=== PATIENT | female | born 1965 | race Caucasian/White ===

== ENCOUNTER 2017-10-07 11:26 | Observation (INO) | payer OTHER ==
[2017-10-07 13:10] LABS: Basophils % (A) 0 %; Eosinophils # (A) 0.2 k/uL (0-0.7); Eosinophils % (A) 2 %; HCT 45.7 % (34.0-46.0); HGB 14.9 gm/dL (11.4-16.0); Lymphocytes # (A) 2.6 k/uL (1.0-4.8); Lymphocytes % (A) 26 %; MCH 29.8 pg (25.0-35.0); MCHC 32.7 g/dL (31.0-37.0); MCV 91.1 fL (80.0-100.0); Monocytes # (A) 0.4 k/uL (0-1.0); Monocytes % (A) 4 %; Neutrophils # (A) 6.5 k/uL (1.3-7.7); Neutrophils % (A) 66 %; Platelet Count 223 k/uL (150-450); RBC 5.02 m/uL (3.80-5.40); RDW 13.1 % (11.5-15.5); WBC 9.8 k/uL (3.8-10.6)
[2017-10-07 13:17] LABS: Prothrombin Time 9.8 sec (9.0-12.0)
[2017-10-07 13:19] LABS: ALT 24 U/L (9-52); AST 27 U/L (14-36); Albumin 4.2 g/dL (3.5-5.0); Alkaline Phosphatase 73 U/L (38-126); Anion Gap 7 mmol/L; Blood Urea Nitrogen 9 mg/dL (7-17); Calcium 9.2 mg/dL (8.4-10.2); Carbon Dioxide 26 mmol/L (22-30); Chloride 107 mmol/L (98-107); Glucose 92 mg/dL (74-99); Lipase 128 U/L (23-300); Potassium 4.1 mmol/L (3.5-5.1); Sodium 140 mmol/L (137-145); Total Bilirubin 0.4 mg/dL (0.2-1.3); Total Protein 6.7 g/dL (6.3-8.2)
[2017-10-07] MEDS ORDERED: KETOROLAC 30 MG/ML 1 ML VIAL IVP STA (15:13)
[2017-10-07] MEDS ORDERED: diphenhydrAMINE 50 MG/ML 1 ML VIAL IVP STA (15:13)
[2017-10-07] MEDS ORDERED: METOCLOPRAMIDE 5 MG/ML 2 ML VIAL IVP STA (15:13)
[2017-10-07] MEDS ORDERED: DEXAMETHASONE SOD PHOSPHATE 10 MG/ML 1 ML VIAL IV STA (15:13)
[2017-10-07] MEDS ORDERED: SODIUM CHLORIDE 0.9% 1,000 ML IV ONE (15:13)
[2017-10-07] MEDS ORDERED: NALOXONE 0.4 MG/ML 1 ML VIAL IV PRN (15:14)
--- NOTE | 2017-10-07 15:23 | ED ---
General Adult HPI - General Chief complaint: Recheck/Abnormal Lab/Rx Stated complaint: Cyst on Brain Time Seen by Provider: 10/07/17 11:58 Source: patient Mode of arrival: ambulatory Limitations: no limitations - History of Present Illness Initial comments: Patient presents with a chief complaint of headache, left sided facial numbness , irritability over the last month. Patient was seen at an outside hospital, [facility], and was advised transfer for MRI. While there, patient had an extensive workup including a computed tomography scan of the head which identified a benign-appearing pineal cyst. CAT scan of the abdomen and pelvis was unremarkable although there was some concern for DVT. Patient did have Dopplers performed however radiologist interpretation was not sent with her. Images were uploaded however radiologist was unable to read the scan. On initial examination, patient overall appears well. She cannot identify an inciting incident to her symptoms. No aggravating or alleviating factors. Timing is constant. - Related Data Allergies Allergy/AdvReac Type Severity Reaction Status Date / Time ibuprofen Allergy Rash/Hives Verified 10/07/17 11:36 naproxen Allergy Rash/Hives Verified 10/07/17 11:36 Sulfa (Sulfonamide Allergy Rash/Hives Verified 10/07/17 11:36 Antibiotics) tramadol Allergy Rash/Hives Verified 10/07/17 11:36 Review of Systems ROS Statement: Those systems with pertinent positive or pertinent negative responses have been documented in the HPI. ROS Other: All systems not noted in ROS Statement are negative. Neurological: Reports: headache, paresthesias Past Medical History Past Medical History: COPD Additional Past Medical History / Comment(s): Pineal gland cyst, diverticulousis , hiatal hernia History of Any Multi-Drug Resistant Organisms: None Reported Past Surgical History: No Surgical Hx Reported Past Psychological History: No Psychological Hx Reported Smoking Status: Current every day smoker Past Alcohol Use History: None Reported Past Drug Use History: None Reported General Exam Limitations: no limitations General appearance: alert, in no apparent distress Head exam: Present: atraumatic, normocephalic Eye exam: Present: normal appearance, PERRL, EOMI. Absent: scleral icterus, conjunctival injection, nystagmus ENT exam: Present: normal exam, normal oropharynx, mucous membranes moist Neck exam: Present: normal inspection Respiratory exam: Present: normal lung sounds bilaterally. Absent: respiratory distress, wheezes Cardiovascular Exam: Present: regular rate, normal rhythm GI/Abdominal exam: Present: soft. Absent: distended, tenderness Rectal exam: Present: deferred External exam: Present: normal external exam Extremities exam: Present: normal inspection Back exam: Present: normal inspection, full ROM. Absent: CVA tenderness (R), CVA tenderness (L) Neurological exam: Present: alert, oriented X3, normal gait, motor sensory deficit, other (Patient reports paresthesias of the left side of the face. There is no motor deficit appreciated. Neurologic exam is otherwise unremarkable.) Psychiatric exam: Present: normal affect, normal mood Skin exam: Present: warm, dry, intact Course Vital Signs 10/07/17 10/07/17 11:31 14:22 Temperature 98.4 F 98.3 F Pulse Rate 86 78 Respiratory 18 18 Rate Blood Pressure 116/76 116/68 O2 Sat by Pulse 99 Oximetry Medical Decision Making - Medical Decision Making Patient presents with a chief complaint of left-sided facial numbness, and irritability over the last month. Patient sent from outside hospital. Records from outside hospital reviewed. Patient will be evaluated with a repeat lower showed a Doppler to rule out DVT. Lab evaluation in the emergency department is unremarkable. Urinalysis was negative from outside facility. Patient treated with a headache cocktail. Considered meningitis however patient not showing meningeal signs. Neurologic exam is nonfocal. I discussed the utility of a lumbar puncture with the patient however she declines at this time. This case was discussed with BUFFY Alberts with Dr. Meraz who accepts admission for further neurologic evaluation and MRI. Care plan discussed with the patient, she is agreeable at this time. On reevaluation, patient remains comfortable, keenly alert and awake. Given patient's presenting symptoms, we discussed TPA. Patient is certainly not a candidate for TPA at this time given the timeframe of her symptoms. Patient understands. EKG performed at the outside hospital yesterday shows normal sinus rhythm with a rate of 82 bpm. Intervals appear to be within normal limits. EKG is otherwise unremarkable. - Lab Data Result diagrams: 10/07/17 12:54 10/07/17 12:54 Lab Results 10/07/17 10/07/17 10/07/17 Range/Units 12:54 12:54 12:54 WBC 9.8 (3.8-10.6) k/uL RBC 5.02 (3.80-5.40) m/uL Hgb 14.9 (11.4-16.0) gm/dL Hct 45.7 (34.0-46.0) % MCV 91.1 (80.0-100.0) fL MCH 29.8 (25.0-35.0) pg MCHC 32.7 (31.0-37.0) g/dL RDW 13.1 (11.5-15.5) % Plt Count 223 (150-450) k/uL Neutrophils % 66 % Lymphocytes % 26 % Monocytes % 4 % Eosinophils % 2 % Basophils % 0 % Neutrophils # 6.5 (1.3-7.7) k/uL Lymphocytes # 2.6 (1.0-4.8) k/uL Monocytes # 0.4 (0-1.0) k/uL Eosinophils # 0.2 (0-0.7) k/uL Basophils # 0.0 (0-0.2) k/uL PT 9.8 (9.0-12.0) sec INR 1.0 (<1.2) Sodium 140 (137-145) mmol/L Potassium 4.1 (3.5-5.1) mmol/L Chloride 107 (98-107) mmol/L Carbon Dioxide 26 (22-30) mmol/L Anion Gap 7 mmol/L BUN 9 (7-17) mg/dL Creatinine 0.60 (0.52-1.04) mg/dL Est GFR (CKD-EPI)AfAm >90 (>60 ml/min/1.73 sqM) Est GFR (CKD-EPI)NonAf >90 (>60 ml/min/1.73 sqM) Glucose 92 (74-99) mg/dL Calcium 9.2 (8.4-10.2) mg/dL Total Bilirubin 0.4 (0.2-1.3) mg/dL AST 27 (14-36) U/L ALT 24 (9-52) U/L Alkaline Phosphatase 73 (38-126) U/L Total Protein 6.7 (6.3-8.2) g/dL Albumin 4.2 (3.5-5.0) g/dL Lipase 128 (23-300) U/L Disposition Clinical Impression: Left facial numbness, Irritability Disposition: ADMITTED IP TO THIS [facility] Condition: Good Referrals: Gabriella Spears MD [Primary Care Provider] - 1-2 days Decision to Admit Reason: Admit from EC - Out of Hospital Transfer - Req. Specs Out of Hospital Transfer - Requested Specifics: Other Non-Acute
[2017-10-07] MEDS: HYDROcodone/APAP 5-325MG 1 EACH TAB PO PRN ×2 (16:05→23:36)
[2017-10-07] MEDS ORDERED: DICYCLOMINE 10 MG CAP PO PRN (18:07)
[2017-10-07] MEDS ORDERED: GABAPENTIN 400 MG CAP PO PRN (18:07)
[2017-10-07] MEDS: KETOROLAC 30 MG/ML 1 ML VIAL IVP PRN (19:52)
--- NOTE | 2017-10-07 20:47 | P.CNNES ---
History of Present Illness Consult date: 10/07/17 Reason for Consult: Patient being admitted for left facial numbness and headache. History of Present Illness: This patient is a 51-year-old right-handed white female who apparently over the last 1 month has been having symptoms of left-sided facial numbness. She describes a sensation as a paresthesia in which her old left side of the face is been numb and tingling. It is been present for over one month. She describes it as if she had gone to the dentist and had anesthesia applied to the area of the face. She states that the symptoms have not improved whatsoever in the past 1 month. She went to see her primary care physician recently who advised her to have a computed tomography scan of the brain done. She was being scheduled for this CAT scan but developed difficulty with her balance and gait yesterday at home and ran into the wall and was showing signs of increasing symptoms and for this reason was brought into the emergency room at [facility] yesterday for evaluation. She underwent a computed tomography scan of the brain which identified a benign-appearing pineal cyst. She was recommended transferred to [facility] for neurological follow-up as well as an MRI of the brain. Patient denies any previous history of significant headaches. She has no previous history of closed head injury or head trauma. She has been perplexed with the sensory changes on the face and for this reason is now been admitted to hospital for further evaluation. Patient states that yesterday at home she lost her balance and was walking into the wall. She did have some degree of dizziness. She does experience muscle spasms but has not had a recent vitamin D level done. She states that about 30 years ago she did have major back surgery done at [facility] in which a cage in several levels had to require fusion. She is unable to have any further back surgery due to the severe complex history that she has had in the past. Patient denies any significant back pain or shooting pain into her legs. Her paresthesias and numbness has been compliant only to the left side of her face. The patient denies any recent dental work. She has no previous history of diplopia or clumsiness over the last 5-10 years. We have recommended a vitamin D level to be done for her for further evaluation. The patient is now been admitted and neurology has been consulted for further evaluation and recommendations. Review of Systems Constitutional: Denies chills, Denies fever Eyes: denies blurred vision, denies pain Ears, nose, mouth and throat: Denies headache, Denies sore throat Cardiovascular: Denies chest pain, Denies shortness of breath Respiratory: Denies cough Gastrointestinal: Denies abdominal pain, Denies diarrhea, Denies nausea, Denies vomiting Genitourinary: Denies dysuria, Denies hematuria Musculoskeletal: Denies myalgias Integumentary: Denies pruritus, Denies rash Neurological: Reports paresthesias, Reports tingling, Denies numbness, Denies weakness Psychiatric: Denies anxiety, Denies depression Endocrine: Denies fatigue, Denies weight change Past Medical History Past Medical History: COPD, Fibromyalgia, GERD/Reflux, Osteoarthritis (OA) Additional Past Medical History / Comment(s): newly found Pineal gland cyst, diverticulousis, hiatal hernia ,emphysema,"arrythmia- skips beats , recently given script for cholesterol med but has'nt filled it yet. shingles 2014 lt lower back,pt stated had flu/pne vaccine but publicity writer unable to verify dates at time of admit History of Any Multi-Drug Resistant Organisms: None Reported Past Surgical History: Back Surgery Additional Past Surgical History / Comment(s): back sx w/ caging lumbar area, rt carpal tunnel release, rt ulnar sx Past Anesthesia/Blood Transfusion Reactions: No Reported Reaction Past Psychological History: No Psychological Hx Reported Additional Psychological History / Comment(s): lives with boyfriend Smoking Status: Current every day smoker Past Alcohol Use History: None Reported Additional Past Alcohol Use History / Comment(s): started smoking at age 8, smokes 1/2 ppd Past Drug Use History: None Reported - Past Family History Father Family Medical History: Cancer Additional Family Medical History / Comment(s): smoker, from lung cancer Mother Family Medical History: Cancer Additional Family Medical History / Comment(s): breast cancr survivor Medications and Allergies Home Medications Medication Instructions Recorded Confirmed Type ALPRAZolam [Xanax] 0.5 mg PO TID PRN 10/07/17 10/07/17 History Atorvastatin [Lipitor] 20 mg PO HS 10/07/17 10/07/17 History Cyclobenzaprine [Flexeril] 10 mg PO TID PRN 10/07/17 10/07/17 History Dicyclomine [Bentyl] 10 mg PO TID PRN 10/07/17 10/07/17 History Fluticasone Nasal [place] [Flonase 2 spr EA NOSTRIL DAILY 10/07/17 10/07/17 History Nasal [place]] Gabapentin 1,600 mg PO HS 10/07/17 10/07/17 History Gabapentin 800 mg PO DAILY PRN 10/07/17 10/07/17 History Pantoprazole Sodium [Protonix] 40 mg PO DAILY 10/07/17 10/07/17 History Verapamil HCl [Verapamil ER] 180 mg PO DAILY 10/07/17 10/07/17 History traZODone HCL 50 - 100 mg PO HS PRN 10/07/17 10/07/17 History Allergies Allergy/AdvReac Type Severity Reaction Status Date / Time ibuprofen Allergy Rash/Hives Verified 10/07/17 15:35 naproxen Allergy Rash/Hives Verified 10/07/17 15:35 Sulfa (Sulfonamide Allergy Rash/Hives Verified 10/07/17 15:35 Antibiotics) tramadol Allergy Rash/Hives Verified 10/07/17 15:35 Physical Examination - Vital Signs Vital Signs: Vital Signs Temp Pulse Pulse Resp BP BP Pulse Ox 10/07/17 17:28 98.8 F 77 16 116/72 98 10/07/17 16:04 98.5 F 84 18 113/71 97 10/07/17 14:22 98.3 F 78 18 116/68 99 10/07/17 11:31 98.4 F 86 18 116/76 Intake and Output 10/07/17 10/07/17 10/07/17 06:59 14:59 22:59 Other: Voiding Method Toilet # Voids 1 Weight 75.75 kg - Constitutional General appearance: average body habitus, cooperative - EENT EENT: PERRL, mucous membranes moist - Respiratory Respiratory: lungs clear, normal breath sounds - Cardiovascular Cardiovascular: regular rate, normal S1, normal S2 Extremities: no peripheral edema bilaterally - Gastrointestinal Gastrointestinal: normoactive bowel sounds - Integumentary Integumentary: normal - Neurologic Speech examination: intact Sensorimotor examination: intact Detailed sensory examination: intact Reflex and gait examination: intact Reflexes: 1+: ankle, bicep, knee, tricep - Musculoskeletal Musculoskeletal: no pain - Psychiatric Psychiatric: mood/affect appropriate, cooperative Results - Laboratory Findings CBC and BMP: 10/07/17 12:54 10/07/17 12:54 Assessment and Plan (1) Left facial numbness Current Visit: Yes Status: Acute Code(s): R20.0 - ANESTHESIA OF SKIN SNOMED Code(s): 156249317 (2) Atypical facial pain Current Visit: Yes Status: Acute Code(s): G50.1 - ATYPICAL FACIAL PAIN SNOMED Code(s): 18009542 (3) Trigeminal neuralgia Current Visit: Yes Status: Acute Code(s): G50.0 - TRIGEMINAL NEURALGIA SNOMED Code(s): 39611801 (4) History of back surgery Current Visit: Yes Status: Acute Code(s): Z98.890 - OTHER SPECIFIED POSTPROCEDURAL STATES SNOMED Code(s): 272605573 Plan: This patient is a 51-year-old female being evaluated for one-month history of left-sided facial numbness and paresthesia. She has had no other significant finding other than the sense of pins and needle sensation on the left side of her face. This has been ongoing for over one month. She underwent a computed tomography scan of the brain at a outside hospital at the [facility]. CAT scan of the brain revealed evidence of a benign-appearing pineal cyst. Patient was transferred to [facility] for further evaluation. We have recommended patient undergo MRI of the brain for further assessment of the left-sided facial numbness. Her symptoms could be early signs of trigeminal neuralgia. We will await her MRI results to come back before giving any further recommendations. Her neurological examination otherwise is nonfocal. She does have mild hyperreflexia in the lower extremities at this is secondary to her known history of back surgery with instrumentation done many years ago at [facility]. We will continue close neurological follow-up with the patient during this admission. Time with Patient: Greater than 30
[2017-10-07] MEDS ORDERED: ATORVASTATIN 20 MG TAB PO SCH (21:00)
[2017-10-07] MEDS ORDERED: GABAPENTIN 400 MG CAP PO SCH (21:00)
[2017-10-08] MEDS: KETOROLAC 30 MG/ML 1 ML VIAL IVP PRN ×2 (03:47→10:04)
[2017-10-08] MEDS ORDERED: PANTOPRAZOLE 40 MG TABLET PO SCH (07:30)
[2017-10-08 07:37] LABS: Basophils % (A) 0 %; Eosinophils % (A) 0 %; HCT 43.6 % (34.0-46.0); HGB 13.9 gm/dL (11.4-16.0); Lymphocytes # (A) 1.2 k/uL (1.0-4.8); Lymphocytes % (A) 13 %; MCH 29.3 pg (25.0-35.0); MCHC 31.8 g/dL (31.0-37.0); MCV 92.1 fL (80.0-100.0); Mean Platelet Volume 6.9; Monocytes # (A) 0.1 k/uL (0-1.0); Monocytes % (A) 1 %; Neutrophils % (A) 85 %; Platelet Count 217 k/uL (150-450); RBC 4.73 m/uL (3.80-5.40); RDW 13.1 % (11.5-15.5); WBC 9.4 k/uL (3.8-10.6)
[2017-10-08] MEDS: HYDROcodone/APAP 5-325MG 1 EACH TAB PO PRN (07:49)
[2017-10-08 08:17] LABS: Anion Gap 7 mmol/L; Blood Urea Nitrogen 11 mg/dL (7-17); Calcium 9.1 mg/dL (8.4-10.2); Carbon Dioxide 23 mmol/L (22-30); Chloride 108 mmol/L (98-107); Glucose 119 mg/dL (74-99); Potassium 4.8 mmol/L (3.5-5.1); Sodium 138 mmol/L (137-145)
[2017-10-08] MEDS ORDERED: VERAPAMIL SR 180 MG TABLET.ER PO SCH (09:00)
[2017-10-08] MEDS ORDERED: FLUTICASONE 50MCG/SPRAY NASAL 16GM EA NOSTRIL SCH (09:00)
--- NOTE | 2017-10-08 12:11 | MR ---
EXAMINATION TYPE: MR brain wo/w con DATE OF EXAM: 10/08/2017 11:56 AM COMPARISON: Guest CT dated 10/06/2017. Period HISTORY: patient with headaches and brain cyst TECHNIQUE: Multiplanar, multiecho imaging of the brain was obtained with and without intravenous adm inistration of 7.5 mL intravenous Gadavist. FINDINGS: 9.2 mm pineal region cyst is well-defined and likely benign. There is unchanged from the ga s CT. There is a partially empty sella. Midline structures are otherwise unremarkable. There is a normal cr aniocervical junction. Echoplanar diffusion imaging is unremarkable. There are normal vascular flow voids. The orbits are unremarkable. There is minimal mucoperiosteal disease involving the posterior ethmoid air cells on the left. There is increased signal within the right-sided mastoid and to a lesser extent the left suggestive o f mastoiditis. There is no evidence of a CP angle mass lesion. No acute focal lesion, mass effect or midline shift is seen. I do not see evidence of intracranial bl ood. Following intravenous administration of gadolinium, I do not see evidence of abnormal enhancement. IMPRESSION: 1. PARTIALLY EMPTY SELLA. 2. PINEAL REGION CYST, LIKELY BENIGN. 3. NO ACUTE INTRACRANIAL ABNORMALITY. 4. MINIMAL ETHMOIDAL SINUS MUCOSAL DISEASE. 5. EVIDENCE OF BILATERAL MASTOIDITIS, WORSE ON THE RIGHT THAN THE LEFT.
[2017-10-08 13:05] VITALS: BP 113/70; PULSE 89; RESP 16; TEMP 99
--- NOTE | 2017-10-08 13:39 | P.PN ---
Subjective Progress Note Date: 10/08/17 Patient being evaluated for acute left sided facial numbness. Patient was admitted to the emergency room yesterday for symptoms of left-sided facial numbness which she has been experiencing for over one month. Her clinical history suggested possibility of demyelinating disease given her young age. She was recommended to undergo MRI of the brain for further evaluation. MRI of the brain was completed today and reveals evidence of partially empty sella. There was also pineal region cyst likely benign. No acute intracranial abnormality was noted. There is minimal ethmoid sinusitis noted. Review of the MRI report indicates the pineal cyst is measuring 9.2 mm in size and well- defined and likely benign. We discussed the results of the MRI today with the patient. Once again this pineal cyst is not the cause of her current symptoms. We suggest that she consider a trial of low-dose Neurontin to see if this may help relieve some of the left-sided facial numbness. Clearly MRI of the brain fails to reveal any evidence of demyelinating disease at this time. Apparently the patient has been taking Neurontin on a regular basis. She may consider alternative such as Cymbalta to see if this may help with the paresthesias. Patient denies any significant neck pain. She does have a history of previous back surgery performed about 30 years ago which required a fusion with a cage procedure. She cannot undergo any further surgery given the complexity of her previous workup and treatment. Patient states that her left-sided facial numbness is improved today and she may consider increasing her dose of Neurontin to see if this may help alleviate the symptoms. Once again we also suggest that she could follow up with a oral surgeon her dentist to specifically evaluate the left dental bridge. Patient otherwise seems to be doing quite well today. We did review the details of the MRI with her and at this time there is no evidence of any major concern to explain her symptoms. She is to follow-up with her primary care physician in a week. We be happy to reevaluate the patient as needed. Objective - Vital Signs Vital signs: Vital Signs Temp 98.5 F 10/08/17 08:00 Pulse 90 10/08/17 08:00 Resp 18 10/08/17 08:00 BP 116/72 10/08/17 08:00 Pulse Ox 95 10/08/17 08:00 Intake & Output 10/07/17 10/08/17 10/08/17 18:59 06:59 18:59 Weight 75.75 kg Other: Voiding Method Toilet Toilet Toilet # Voids 1 3 - Exam Physical examination: PHYSICAL EXAMINATION: Patient is resting comfortably in bed. VITAL SIGNS: Blood pressure is [116/72]. Heart rate is [90]. Respiration is [18] . Temperature is [98.5]. HEENT: Head is atraumatic, neck is supple, there were no carotid bruits. CHEST: Lungs are clear to auscultation and percussion. CARDIAC: S1, S2 normal rate and rhythm. There is no murmur. ABDOMEN: Soft and nontender. Bowel sounds are present. EXTREMITIES: There is no pedal edema. Peripheral pulses are present. Neurological examination: Patient continues to experience left-sided facial numbness and. Seizures. Her remaining neurological examination is nonfocal. Her left facial numbness is slightly improved today. - Labs CBC & Chem 7: 10/08/17 06:27 10/08/17 06:27 Labs: Abnormal Lab Results - Last 24 Hours (Table) 10/08/17 10/08/17 Range/Units 06:27 06:27 Neutrophils # 8.0 H (1.3-7.7) k/uL Chloride 108 H (98-107) mmol/L Glucose 119 H (74-99) mg/dL Assessment and Plan (1) Left facial numbness Current Visit: Yes Status: Acute Code(s): R20.0 - ANESTHESIA OF SKIN SNOMED Code(s): 124098011 (2) Atypical facial pain Current Visit: Yes Status: Acute Code(s): G50.1 - ATYPICAL FACIAL PAIN SNOMED Code(s): 74526316 (3) Trigeminal neuralgia Current Visit: Yes Status: Acute Code(s): G50.0 - TRIGEMINAL NEURALGIA SNOMED Code(s): 76485299 (4) History of back surgery Current Visit: Yes Status: Acute Code(s): Z98.890 - OTHER SPECIFIED POSTPROCEDURAL STATES SNOMED Code(s): 324003257 Plan: This patient is a 51-year-old female who was admitted to hospital for evaluation of left-sided facial numbness. Patient underwent MRI of the brain today the results of which are noted above. MRI reveals evidence of a benign pineal cyst measuring 9.2 mm in size. There was no evidence of demyelinating disease. A partially empty sella was noted. We did review the results of the MRI today with the patient. She has been using Neurontin for treatment of chronic pain and may consider increasing the dosage of the Neurontin to see if this may help. There is no evidence on her MRI to warrant further workup for demyelinating disease such as MS at this time. We have recommended she may also consider follow-up with a dentist or oral surgeon regarding any local conditions producing the left-sided symptoms. At this time the patient is neurological examination is otherwise nonfocal. We will continue close neurological follow-up for this patient during this admission. Patient has noted some improvement today with the left facial numbness. She may follow-up with her primary care physician in one week. Her overall prognosis at this time remains guarded.
--- NOTE | 2017-10-08 14:41 | P.HPIM ---
History of Present Illness H&P Date: 10/08/17 Chief Complaint: L sided facial numbness Patient presents with a chief complaint of headache, left sided facial numbness , irritability over the last month. Patient was seen at an outside hospital, [facility], and was advised transfer for MRI. While there, patient had an extensive workup including a computed tomography scan of the head which identified a benign-appearing pineal cyst. CAT scan of the abdomen and pelvis was unremarkable although there was some concern for DVT. Patient did have Dopplers performed however radiologist interpretation was not sent with her. Images were uploaded however radiologist was unable to read the scan. On initial examination, patient overall appears well. She cannot identify an inciting incident to her symptoms. No aggravating or alleviating factors. Timing is constant. 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 rc 2014 lt lower back,pt stated had flu/pne vaccine but sql report writer unable to verify dates at time of admit History of Any Multi-Drug Resistant Organisms: None Reported Past Surgical History: Back Surgery Additional Past Surgical History / Comment(s): back sx w/ caging lumbar area, rt carpal tunnel release, rt ulnar sx Past Anesthesia/Blood Transfusion Reactions: No Reported Reaction Past Psychological History: No Psychological Hx Reported Additional Psychological History / Comment(s): lives with boyfriend Smoking Status: Current every day smoker Past Alcohol Use History: None Reported Additional Past Alcohol Use History / Comment(s): started smoking at age 8, smokes 1/2 ppd Past Drug Use History: None Reported - Past Family History Father Family Medical History: Cancer Additional Family Medical History / Comment(s): smoker, from lung cancer Mother Family Medical History: Cancer Additional Family Medical History / Comment(s): breast cancr survivor Medications and Allergies Home Medications Medication Instructions Recorded Confirmed Type ALPRAZolam [Xanax] 0.5 mg PO TID PRN 10/07/17 10/07/17 History Atorvastatin [Lipitor] 20 mg PO HS 10/07/17 10/07/17 History Cyclobenzaprine [Flexeril] 10 mg PO TID PRN 10/07/17 10/07/17 History Dicyclomine [Bentyl] 10 mg PO TID PRN 10/07/17 10/07/17 History Fluticasone Nasal [place] [Flonase 2 spr EA NOSTRIL DAILY 10/07/17 10/07/17 History Nasal [place]] Gabapentin 1,600 mg PO HS 10/07/17 10/07/17 History Gabapentin 800 mg PO DAILY PRN 10/07/17 10/07/17 History Pantoprazole Sodium [Protonix] 40 mg PO DAILY 10/07/17 10/07/17 History Verapamil HCl [Verapamil ER] 180 mg PO DAILY 10/07/17 10/07/17 History traZODone HCL 50 - 100 mg PO HS PRN 10/07/17 10/07/17 History Allergies Allergy/AdvReac Type Severity Reaction Status Date / Time ibuprofen Allergy Rash/Hives Verified 10/07/17 15:35 naproxen Allergy Rash/Hives Verified 10/07/17 15:35 Sulfa (Sulfonamide Allergy Rash/Hives Verified 10/07/17 15:35 Antibiotics) tramadol Allergy Rash/Hives Verified 10/07/17 15:35 Physical Exam Vitals: Vital Signs Temp Pulse Pulse Pulse Resp BP BP 10/08/17 08:00 98.5 F 90 18 116/72 10/08/17 07:56 80 18 10/08/17 04:00 18 10/08/17 03:43 98.3 F 80 18 111/75 10/08/17 00:03 98.4 F 86 16 106/71 10/07/17 23:03 16 10/07/17 20:00 16 10/07/17 17:28 98.8 F 77 16 116/72 10/07/17 16:04 98.5 F 84 18 113/71 10/07/17 14:22 98.3 F 78 18 116/68 10/07/17 11:31 98.4 F 86 18 116/76 Pulse Ox 10/08/17 08:00 95 10/08/17 07:56 10/08/17 04:00 10/08/17 03:43 96 10/08/17 00:03 96 10/07/17 23:03 10/07/17 20:00 10/07/17 17:28 98 10/07/17 16:04 97 10/07/17 14:22 99 10/07/17 11:31 Intake and Output 10/07/17 10/08/17 10/08/17 22:59 06:59 14:59 Other: Voiding Method Toilet Toilet Toilet # Voids 1 3 - Constitutional General appearance: Present: average body habitus, cooperative, no acute distress - EENT Eyes: Present: anicteric sclerae, EOMI, PERRLA, normal appearance ENT: Present: hearing grossly normal, normal oropharynx Ears: bilateral: normal - Neck Neck: Present: normal ROM. Absent: lymphadenopathy, rigidity, thyromegaly Carotids: negative: bruit present Thyroid: bilateral: normal size, negative: enlarged, nodule - Respiratory Respiratory: bilateral: CTA, negative: rales, rhonchi, wheezing - Cardiovascular Rhythm: regular Heart sounds: normal: S1, S2 Abnormal Heart Sounds: Absent: systolic murmur, diastolic murmur - Gastrointestinal General gastrointestinal: Present: normal bowel sounds, soft. Absent: distended , organomegaly, tenderness - Genitourinary Genitourinary Comment(s): deferred - Integumentary Integumentary: Present: normal turgor. Absent: jaundiced, rash, ulcer - Neurologic Neurologic: Present: CNII-XII intact. Absent: focal deficits - Musculoskeletal Musculoskeletal: Present: gait normal, strength equal bilaterally - Psychiatric Psychiatric: Present: A&O x's 3, appropriate affect, intact judgment & insight Results CBC & Chem 7: 10/08/17 06:27 10/08/17 06:27 Labs: Abnormal Lab Results - Last 24 Hours (Table) 10/08/17 10/08/17 Range/Units 06:27 06:27 Neutrophils # 8.0 H (1.3-7.7) k/uL Chloride 108 H (98-107) mmol/L Glucose 119 H (74-99) mg/dL Thrombosis Risk Factor Assmnt - Choose All That Apply Any of the Below Risk Factors Present?: Yes Each Factor Represents 1 point: Age 41-60 years Other Risk Factors: No Thrombosis Risk Factor Assessment Total Risk Factor Score: 1 Thrombosis Risk Factor Assessment Level: Low Risk Assessment and Plan Plan: 1. Left facial numbness - Patient is admitted to [facility] for neurology evaluation - Patient didn't undergo MRI which showed partially empty sella. Also showing pineal cyst possibly benign; neurology consultation is noted and pineal cyst does not cause of patient's current symptoms; patient has been recommended a trial of Neurontin for left facial numbness; patient has been taking Neurontin and regular basis; recommendation is also possibly Cymbalta if Neurontin doesn' t work for paresthesias; patient is recommended outpatient follow-up with neurology and primary care physician 2. Atypical facial pain/trigeminal neuralgia; as above patient is recommended to continue Neurontin and Cymbalta S alternative if symptoms don't improve 3. History of back surgery 4. Hypertension; stable on home medications 5. Hyperlipidemia; continue with home dose of Lipitor 10 mg daily at bedtime Neurology recommendation is noted and plan is to discharge patient home with outpatient follow-up with neurology and PCP Time with Patient: Less than 30
--- NOTE | 2017-10-08 14:42 | P.DS ---
Providers Date of admission: 10/07/17 15:14 Expected date of discharge: 10/08/17 Attending physician: Cj Meraz Consults: 10/07/17 15:43 Consult Physician Routine Consulting Provider: Ian Chavez Consult Reason/Comments: facial numbness x 1 month Do you want consulting provider notified?: Yes Primary care physician: Gabriella Spears [facility] Course: L sided facial numbness Patient presents with a chief complaint of headache, left sided facial numbness , irritability over the last month. Patient was seen at an outside hospital, [facility], and was advised transfer for MRI. While there, patient had an extensive workup including a computed tomography scan of the head which identified a benign-appearing pineal cyst. CAT scan of the abdomen and pelvis was unremarkable although there was some concern for DVT. Patient did have Dopplers performed however radiologist interpretation was not sent with her. Images were uploaded however radiologist was unable to read the scan. On initial examination, patient overall appears well. She cannot identify an inciting incident to her symptoms. - Patient is admitted to [facility] for neurology evaluation - Patient didn't undergo MRI which showed partially empty sella. Also showing pineal cyst possibly benign; neurology consultation is noted and pineal cyst does not cause of patient's current symptoms; patient has been recommended a trial of Neurontin for left facial numbness; patient has been taking Neurontin and regular basis; recommendation is also possibly Cymbalta if Neurontin doesn' t work for paresthesias; patient is recommended outpatient follow-up with neurology and primary care physician Patient Condition at Discharge: Good Plan - Discharge Summary Discharge Rx Participant: Yes New Discharge Prescriptions: Continue traZODone HCL 50 - 100 mg PO HS PRN PRN Reason: Insomnia Verapamil HCl [Verapamil ER] 180 mg PO DAILY Gabapentin 800 mg PO DAILY PRN PRN Reason: Pain Gabapentin 1,600 mg PO HS Pantoprazole Sodium [Protonix] 40 mg PO DAILY Fluticasone Nasal [place] [Flonase Nasal [place]] 2 spr EA NOSTRIL DAILY Dicyclomine [Bentyl] 10 mg PO TID PRN PRN Reason: Gi Upset Cyclobenzaprine [Flexeril] 10 mg PO TID PRN PRN Reason: Muscle Spasm Atorvastatin [Lipitor] 20 mg PO HS ALPRAZolam [Xanax] 0.5 mg PO TID PRN PRN Reason: Anxiety Discharge Medication List ALPRAZolam [Xanax] 0.5 mg PO TID PRN 10/07/17 [History] Atorvastatin [Lipitor] 20 mg PO HS 10/07/17 [History] Cyclobenzaprine [Flexeril] 10 mg PO TID PRN 10/07/17 [History] Dicyclomine [Bentyl] 10 mg PO TID PRN 10/07/17 [History] Fluticasone Nasal [place] [Flonase Nasal [place]] 2 spr EA NOSTRIL DAILY 10/07/17 [ History] Gabapentin 1,600 mg PO HS 10/07/17 [History] Gabapentin 800 mg PO DAILY PRN 10/07/17 [History] Pantoprazole Sodium [Protonix] 40 mg PO DAILY 10/07/17 [History] Verapamil HCl [Verapamil ER] 180 mg PO DAILY 10/07/17 [History] traZODone HCL 50 - 100 mg PO HS PRN 10/07/17 [History] Follow up Appointment(s)/Referral(s): Gabriella Spears MD [Primary Care Provider] - 1-2 days
[2017-10-08 22:48] LABS: Vitamin D 25 Hydroxy 33.1 ng/mL (30.0-100.0)
== END 2017-10-08 14:43 | disposition home or self-care (01) ==
LOC: EC 11:26 → 3OBS 15:14 → INTOOBSV 15:14
PROVIDERS: ADMIT Hospitalist; ATTEND Hospitalist
DX: R20.0 Anesthesia of skin (principal); G50.1 Atypical facial pain; G50.0 Trigeminal neuralgia; R45.4 Irritability and anger; G93.0 Cerebral cysts; I10 Essential (primary) hypertension; E78.5 Hyperlipidemia, unspecified; F17.210 Nicotine dependence, cigarettes, uncomplicated; M79.7 Fibromyalgia; K21.9 Gastro-esophageal reflux disease without esophagitis; M19.90 Unspecified osteoarthritis, unspecified site; K57.90 Diverticulosis of intestine, part unspecified, without perforation or abscess without bleeding; K44.9 Diaphragmatic hernia without obstruction or gangrene; J43.9 Emphysema, unspecified; R26.9 Unspecified abnormalities of gait and mobility; M62.838 Other muscle spasm; Z98.1 Arthrodesis status; Z79.51 Long term (current) use of inhaled steroids; Z88.2 Allergy status to sulfonamides; Z79.899 Other long term (current) drug therapy; Z88.6 Allergy status to analgesic agent; Z86.19 Personal history of other infectious and parasitic diseases; Z80.1 Family history of malignant neoplasm of trachea, bronchus and lung; Z80.3 Family history of malignant neoplasm of breast; Z81.2 Family history of tobacco abuse and dependence
CPT/HCPCS: 99285 ×2; 96374; 96375; 96376 ×2; 36415; 80053; 80048; 82607; 83690; 85025 ×2; 85610; 82306; 70553; G0378 ×2; J1200; J1100; J2765; J1885 ×2; A9581

== ENCOUNTER → 2018-07-25 | Outpatient (CLI) | payer MEDICARE ==
--- NOTE | 2018-07-26 07:14 | XR ---
EXAMINATION TYPE: XR lumbosacral spine min 4V DATE OF EXAM: 07/25/2018 CLINICAL HISTORY: pain COMPARISON: NONE TECHNIQUE: Frontal, lateral, and oblique images of the lumbar spine are obtained. FINDINGS: Postoperative changes of lumbar fusion with intervertebral body spacers in place. Grade 1 a nterolisthesis of 5.8 mm of L5 on S1. Remaining lumbar levels demonstrate mild degenerative disc spac e narrowing. Ventral spondylosis. Facet joint arthropathy. IMPRESSION: Postoperative changes of fusion with alignment as discussed.
== END | disposition home or self-care (01) ==
LOC: RADXRYALE 16:45
PROVIDERS: ATTEND Internal Medicine
DX: M54.5 Low back pain (principal); Z98.1 Arthrodesis status
CPT/HCPCS: 72110

== ENCOUNTER → 2018-09-22 | Outpatient (CLI) | payer MEDICARE ==
--- NOTE | 2018-09-22 08:00 | MR ---
EXAMINATION TYPE: MR brain wo/w con DATE OF EXAM: 09/22/2018 COMPARISON: MRI brain October 08, 2017. HISTORY: Pineal Gland Cyst TECHNIQUE: Multiplanar, multisequence images of the brain and brainstem is performed without and with IV contras t, utilizing 7 mL intravenous Gadavist . FINDINGS: Diffusion weighted images demonstrate no evidence of a recent infarct or other diffusion ab normality. There is no extra-axial fluid collection or significant white matter signal abnormality. The ventricular system and cisternal spaces are normal in size and appearance. The brain volume is age appropriate. Midline structures redemonstrate stable 9 mm pineal gland cyst axial image 16. There is redemonstrati on of empty sella type morphology The craniocervical junction appears within normal limits. Post co ntrast images demonstrate no abnormal enhancement. The dural venous sinuses appear patent. Mild mucos al thickening right maxillary sinus with tiny inferior mucous retention cyst or polyp is redemonstrat ed. There is mild to moderate mucosal thickening ethmoid sinuses bilaterally redemonstrated. There is mild/moderate mucosal thickening inferior left frontal sinus now seen. Increased fluid signal bilate ral mastoid air cells, right greater than left is redemonstrated. IMPRESSION: Stable minute 9 mm pineal gland cyst. Slightly more prominent paranasal sinus disease. Pe rsistent increased fluid signal bilateral mastoid air cells presumed retained secretions.
== END | disposition home or self-care (01) ==
LOC: RADMRIMAIN 06:07
PROVIDERS: ATTEND Internal Medicine
DX: E34.8 Other specified endocrine disorders (principal)
CPT/HCPCS: 70553; A9585

== ENCOUNTER → 2019-03-09 | Outpatient (CLI) | payer MEDICARE ==
--- NOTE | 2019-03-09 13:21 | CT ---
EXAMINATION TYPE: CT abdomen pelvis w con DATE OF EXAM: 03/09/2019 COMPARISON: None INDICATION: Left lower quadrant pain. DLP: 598 mGycm, Automated exposure control for dose reduction was used. CONTRAST: 100 mL of Isovue M300. Study performed with Oral Contrast TECHNIQUE: Axial images were obtained from above the diaphragm to the pubic rami in the axial plane a t 5 mm thick sections. Reconstructed images are reviewed on the computer in the coronal plane. FINDINGS: Limited CT sections are obtained the lung bases. The lung bases are clear. CT ABDOMEN: Liver: Normal Spleen: Normal Pancreas: Normal Adrenal glands: The adrenal glands are normal. Gallbladder: Normal Kidneys: No masses are evident. No hydronephrosis is present. No cysts are present. Delayed images were obtained through the kidneys, which remain unremarkable. Aorta: Vascular calcification is within the aorta. Inferior vena cava: Normal. CT PELVIS: Loops of bowel within the abdomen and pelvis are normal. Mild wall thickening within the proximal si gmoid colon is not excluded. No acute diverticulitis is evident. Significant narrowing is not evident . Very mild colitis is not excluded. Differential diagnosis could include peristalsis. There are lo ops of bowel which are incompletely distended or lack oral contrast limiting their evaluation. Appendix: Normal as visualized. Urinary bladder: Normal. Genitourinary structures: Uterus is unremarkable. Adnexal regions are clear. Osseous structures: No suspicious lytic or sclerotic lesions. Disc spacers are present within the lum bar spine. IMPRESSIONS: 1. There may be some subtle wall thickening through a moderate length segment of proximal sigmoid co lovely. Colitis versus peristalsis could be considered. No adjacent inflammatory changes or acute divert iculitis is evident.
== END | disposition home or self-care (01) ==
LOC: RADCTMAIN 10:55
PROVIDERS: ATTEND Internal Medicine
DX: R10.32 Left lower quadrant pain (principal)
CPT/HCPCS: 74177; Q9967 ×2

== ENCOUNTER → 2019-08-15 | Outpatient (CLI) | payer MEDICARE ==
--- NOTE | 2019-08-15 11:57 | MR ---
EXAMINATION TYPE: MR lumbar spine wo/w con DATE OF EXAM: 08/15/2019 COMPARISON: None. HISTORY: 53-year-old female M51.36, M54.16. Radiculopathy lumbar region, disc degeneration Technique: Multiplanar, multisequence images of the lumbar spine were obtained before and after admin istration of 7 mL intravenous Gadavist gadolinium contrast. FINDINGS: Interbody devices are present at L4-L5 and L5-S1. Vertebral body heights are preserved. Degenerative trace grade 1 retrolistheses at L2-L3 and L3-L4. Facet arthropathy mid and lower lumbar spine. Ligamentum flavum thickening above the fusion at L3-L4. Mild to moderate degenerative disc disease with desiccated and bulging discs at the unfused levels. E nhancing posterior fissures are noted at L1-L2, L2-L3, L3-L4. Diffuse diminished signal suggests prominent red marrow hyperplasia. Conus medullaris is normal. No prevertebral or paravertebral soft tissue abnormality. At T12-L1, no canal or foraminal stenosis. At L1-L2, disc bulge without significant canal or foraminal stenosis. At L2/L3, facet arthropathy with a trace grade 1 retrolisthesis and bulging disc. Mild narrowing of t he spinal canal with moderate bilateral neuroforaminal stenosis. At L3-L4, diffuse disc bulge with ligamentum flavum thickening and hypertrophic facet arthropathy. Tr naveen grade 1 retrolisthesis. There is moderate focal spinal canal stenosis and moderate bilateral neur oforaminal stenosis. At the fused L4-L5 level, some residual hyperostotic changes with mild left neural foraminal stenosis . No spinal canal stenosis. At the fused L5-S1 level, some residual hyperostotic changes cause mild bilateral neural foraminal st enosis. No spinal canal stenosis. No suspicious perineural or epidural enhancing granulation tissue. IMPRESSION: 1. Status post L4-L5 and L5-S1 interbody fusion. Some residual hyperostotic changes at both of these levels results in mild bilateral neuroforaminal stenosis. No suspicious perineural enhancing granulat ion tissue seen. 2. [id number] degenerative disc disease with desiccated and bulging discs. Posterior annular fi ssures are noted from L1 through L4 levels. 3. Additional facet arthropathy. Ligamentum flavum thickening is pronounced above the fusion and ryann g with a disc bulge, at L3-L4, changes result in a focal moderate spinal canal stenosis. Mild overall spinal canal narrowing at L2-L3. 4. Moderate bilateral neuroforaminal stenosis at both L2-L3 and L3-L4.
== END | disposition home or self-care (01) ==
LOC: RADMRIMAIN 10:17
PROVIDERS: ATTEND Physician Assistant
DX: M48.061 Spinal stenosis, lumbar region without neurogenic claudication (principal); M51.26 Other intervertebral disc displacement, lumbar region; M51.16 Intervertebral disc disorders with radiculopathy, lumbar region; M47.26 Other spondylosis with radiculopathy, lumbar region; Z98.1 Arthrodesis status; M51.36 Other intervertebral disc degeneration, lumbar region
CPT/HCPCS: 72158; A9585

== ENCOUNTER → 2019-11-14 | Outpatient (CLI) | payer MEDICARE ==
--- NOTE | 2019-11-14 09:48 | MR ---
EXAMINATION TYPE: MR brain wo/w con DATE OF EXAM: 11/14/2019 COMPARISON: 09/22/2018 HISTORY: Benign neoplasm of pineal gland TECHNIQUE: Multiplanar, multisequence images of the brain and brainstem is performed without and with IV contras t, utilizing 7 mL intravenous Gadavist . FINDINGS: Diffusion weighted images demonstrate no evidence of a recent infarct or other diffusion ab normality. There is no extra-axial fluid collection or significant white matter signal abnormality. The ventricular system and cisternal spaces are normal in size and appearance. The brain volume is age appropriate. Stable 9 mm pineal gland cyst. Partially empty sella turcica. Trace amount of fluid surrounding the optic nerves stable from the giles or exam. No orbital flattening. No evidence of enhancing mass. A probable small venous angioma incidentally noted involving the vee. Changes of chronic sinusitis noted and mastoiditis. Orbits are symmetric. IMPRESSION: 1. Stable 9 mm pineal gland cyst. Occasionally a cystic pinealocytoma can have a similar appearance. 2. Incidental note made of a venous angioma within the vee. 3. Changes of chronic sinusitis and mastoiditis. 4. Trace amount of fluid surrounding the optic nerves is a nonspecific finding can occasionally be se en with papilledema. However, this appears stable from the prior exam. Correlate clinically
== END | disposition home or self-care (01) ==
LOC: RADMRIMAIN 08:44
PROVIDERS: ATTEND Physician Assistant Medical
DX: D35.4 Benign neoplasm of pineal gland (principal)
CPT/HCPCS: 70553; A9585

== ENCOUNTER → 2020-12-15 | Outpatient (CLI) | payer MEDICARE ==
--- NOTE | 2020-12-15 12:51 | XR ---
EXAMINATION TYPE: XR toes LT DATE OF EXAM: 12/15/2020 COMPARISON: NONE HISTORY: Injury to second toe 3 weeks ago TECHNIQUE: 2 views left toe FINDINGS: No acute fracture or dislocation. No definite degenerative changes. IMPRESSION: Unremarkable toe.
== END | disposition home or self-care (01) ==
LOC: RADXRYALE 10:56
PROVIDERS: ATTEND Family Medicine
DX: M79.675 Pain in left toe(s) (principal)

== ENCOUNTER → 2021-10-14 | Outpatient (CLI) | payer MEDICARE ==
--- NOTE | 2021-10-14 18:30 | XR ---
EXAMINATION TYPE: PA chest and left rib series, 5 views DATE OF EXAM: 10/14/2021 Comparison: None Clinical History: 55-year-old female shortness of breath posterior lower left rib pain after fall. [id number] INTERCOSTAL PAIN,SOB Findings: Frontal view of the chest shows normal heart size, aorta, and pulmonary vasculature. There is mild hy perinflation which may related to depth of inspiration or underlying emphysema. No displaced left rib fracture is seen. Impression: Hyperinflation may relate to depth of inspiration or underlying emphysema. Clinically correlate. No d isplaced left rib fracture seen.
== END | disposition home or self-care (01) ==
LOC: RADXRYALE 12:02
PROVIDERS: ATTEND Physician Assistant
DX: R07.82 Intercostal pain (principal); R06.02 Shortness of breath